=== PATIENT | female | born 1955 | race Caucasian/White ===

== ENCOUNTER 2021-03-09 06:06 | Outpatient (CLI) | payer MEDICARE ==
[~2021-03-09] VITALS: Ht 167.7 cm; Wt 105.5 kg
[2021-03-09] MEDS ORDERED: LEVO75CA5 PO (15:22)
[2021-03-09] MEDS ORDERED: TIZA4TAB4 PO (15:22)
== END 2021-03-09 17:00 | disposition home or self-care (01) ==
LOC: PREOP 06:06
PROVIDERS: ATTEND Surgery
DX: Z01.818 Encounter for other preprocedural examination (principal)

== ENCOUNTER 2021-03-16 08:18 | Day surgery (SDC) | payer MEDICARE ==
--- NOTE | 2021-03-15 14:05 | HISTORY AND PHYSICAL ---
DATE OF SERVICE: ATTENDING PHYSICIAN: HISTORY OF PRESENT ILLNESS: The patient is a 66-year-old female, who was referred over to us for gallstones. She reports that for the last 4 to 5 years she has had intermittent episodes of right sided abdominal pain, which she reports would radiate towards her back as well as episodes of bloating. She reports that she had an ultrasound in 2015, which did show gallstones and then had a repeat ultrasound in July of last year, which showed gallstones. She denied any nausea or vomiting as well as no diarrhea. She reports that she has not noticed any association between any foods in her pain. PAST MEDICAL HISTORY: Morbid obesity, hypothyroidism, degenerative joint disease of the back and knees. PAST SURGICAL HISTORY: Left total knee arthroplasty 08/2019, open appendectomy in 1974. ALLERGIES: No known drug allergies. MEDICATIONS: [place] Thyroid 180 mg, hydrocodone/acetaminophen 7.5/325 mg, meloxicam 15 mg, tizanidine 4 mg. SOCIAL HISTORY: Previous for tobacco smoke for 20 pack years, quit in 2017, negative for alcohol. FAMILY HISTORY: Father, myocardial infarction. Mother, hypertension, myocardial infarction. VITAL SIGNS: Blood pressure is 184/80. Current weight is 230 pounds at 5 feet 6 inches. REVIEW OF SYSTEMS: This is a well-nourished female in no acute distress. She is not experiencing any shortness of breath or difficulty breathing. No chest pain, palpitations or diaphoresis. No nausea or vomiting. She does report episodes of right upper quadrant abdominal pain that does radiate towards her back. No diarrhea or constipation. No red blood per rectum. No dark tarry stools. No fever or chills. No recent inadvertent weight loss. All other review of systems negative. PHYSICAL EXAMINATION: CHEST: Clear. Good breath sounds bilaterally. HEART: Regular, no murmurs. EXTREMITIES: No lower extremity edema. Negative Homans sign. HEENT: No scleral icterus. NECK: No cervical lymphadenopathy. ABDOMEN: Soft, nondistended. There is some mild discomfort with palpation in the right upper abdominal quadrant. No palpable masses. No organomegaly. SKIN: Warm, dry and pink. NEUROLOGIC: Awake, alert and oriented x3. ASSESSMENT AND PLAN: A 66-year-old female with symptomatic chronic calculous cholecystitis. At this time, we will recommend proceeding with a laparoscopic cholecystectomy. The risks and benefits of the procedure as well as the procedure and home care instructions were explained to the patient. The patient verbalized understanding of instructions and agrees to proceed as planned. Job ID: [id number] DocumentID: [id number] Dictated Date: 03/15/2021 13:33:46 Stationary Fireman Date: 03/15/2021 14:04:24 Dictated By: KEIRY GREY APRN
[2021-03-16] VITALS (12 sets, daily range): BP systolic 114–161; BP diastolic 64–93
[~2021-03-16] VITALS: Ht 167.7 cm; Wt 105.5 kg
[~2021-03-16 08:18] MED LIST: LEVO75CA5 PO; TIZA4TAB4 PO
[2021-03-16] MEDS ORDERED: FAMOTIDINE 20MG/2ML IV (PEPCID) IV ONE (08:45)
[2021-03-16] MEDS ORDERED: ONDANSETRON 4 MG/2 ML (SDV) Z0FRAN IV ONE (08:45)
[2021-03-16] MEDS ORDERED: LACTATED RINGERS 1,000 ML IV PRN (09:00)
[2021-03-16] MEDS ORDERED: ceFAZolin 2 GM IV Premixed 50 ML IV ONE (09:00)
[2021-03-16] MEDS ORDERED: ceFAZolin 2 GM IV Premixed 50 ML ONE (09:10)
--- NOTE | 2021-03-16 09:11 | Progress Note-Pre Operative ---
Pre-Operative Progress Note H&P Reviewed The H&P was reviewed, patient examined and no changes noted. Date Seen by Provider: Mar 16, 2021 Time Seen by Provider: 09:05 Date H&P Reviewed: Mar 16, 2021 Time H&P Reviewed: 09:00 Pre-Operative Diagnosis: Chronic calculous cholecystitis KEIRY GREY APRN Mar 16, 2021 09:11
[2021-03-16] MEDS ORDERED: HYDR-3817 PO (09:13)
--- NOTE | 2021-03-16 09:14 | Discharge Inst-Surgical ---
D/C Lap Instructions-KIDO Reconcile Patient Problems Problems Reviewed?: Yes New, Converted, or Re-Newed RX: RX on Chart Follow Up Appt in 2 weeks Activity as tolerated No driving for 24 hours No driving while on pain medications Incentive Spirometry use every 2 hours while awake Regular Diet Symptoms to Report: Fever over 101 degree F, Nausea/Vomiting Infection Signs and Symptoms to report: Increased redness, Foul odor of wound, Increased drainage Bathing instructions: May shower Operative Area Clean/Dry; Keep incision clean/dry If any problems/questions: Contact your physician or go to Emergency Room KEIRY GREY APRN Mar 16, 2021 09:14
[2021-03-16] MEDS ORDERED: ONDANSETRON 4 MG/2 ML (SDV) Z0FRAN IVP PRN (09:15)
[2021-03-16] MEDS ORDERED: HYDROcodone/APAP 5 MG/325 MG (LORTAB) TAB PO ONE (09:15)
[2021-03-16] MEDS ORDERED: ACETAMINOPHEN 325 MG TABLET PO PRN (09:15)
[2021-03-16] MEDS ORDERED: morphine INJ 10 MG/ML 1ML (SYR OR VIAL) IVP PRN (09:15)
[2021-03-16] MEDS ORDERED: LIDOCAINE/EPI 1%-1:100,000 (XYLOCAINE) 20ML ONE (09:27)
[2021-03-16] MEDS ORDERED: LIDOCAINE PF 2% 5 ML (XYLOCAINE) VIAL ONE (09:49)
[2021-03-16] MEDS ORDERED: ONDANSETRON 4 MG/2 ML (SDV) Z0FRAN ONE ×3 (09:49→12:06)
[2021-03-16] MEDS ORDERED: proPOfol 200 MG/20 ML (DIPRIVAN) VIAL IV ONE (09:49)
[2021-03-16] MEDS ORDERED: fentaNYL INJ 100 MCG/2 ML AMP ONE (09:49)
[2021-03-16] MEDS ORDERED: ROCURONIUM 10 MG/ML 5 ML SYRINGE IV ONE (09:49)
[2021-03-16] MEDS ORDERED: SEVOFLURANE (ULTANE) 15 ML INHAL SOLN ONE (09:49)
[2021-03-16] MEDS ORDERED: MIDAZOLAM 2 MG/2 ML (VERSED) VIAL ONE (09:50)
[2021-03-16] MEDS ORDERED: SUCCINYLCHOLINE INJ 100 MG/5 ML SYR/VIAL ONE (10:45)
[2021-03-16] MEDS ORDERED: NEOSTIGMINE 3 MG/3 ML VIAL ONE (11:33)
[2021-03-16] MEDS ORDERED: GLYCOPYRROLATE 0.2 MG/ML (ROBINUL) 2 ML VIAL ONE (11:33)
--- NOTE | 2021-03-16 11:42 | Progress Note-Post Operative ---
Post-Operative Progess Note Surgeon (s)/Impact Hammer Operator (s) Surgeon EDVIN ROWE MD Impact Hammer Operator: sharon vitale BICYCLE REPAIRER Pre-Operative Diagnosis Chronic calculous cholecystitis Post-Operative Diagnosis same Procedure & Operative Findings Date of Procedure 03/16/21 Procedure Performed/Findings laparoscopic cholecystectomy Anesthesia Type GET Estimated Blood Loss Estimated blood loss (mL): minimal Specimens/Packing Specimens Removed gallbladder EDVIN ROWE MD Mar 16, 2021 11:42
--- NOTE | 2021-03-16 11:56 | Anesthesia-General Post-Op ---
General Patient Condition Mental Status/LOC: Same as Preop Cardiovascular: Satisfactory Nausea/Vomiting: Absent Respiratory: Satisfactory Pain: Controlled Complications: Absent Post Op Complications Complications None Follow Up Care/Instructions Patient Instructions None needed. Anesthesia/Patient Condition Patient Condition Patient is doing well, no complaints, stable vital signs, no apparent adverse anesthesia problems. No complications reported per nursing. PEDRO LUIS MCKEE CRNA Mar 16, 2021 11:56
[2021-03-16] MEDS ORDERED: morphine INJ 10 MG/ML 1ML (SYR OR VIAL) ONE (11:58)
[2021-03-16] MEDS: ONDANSETRON 4 MG/2 ML (SDV) Z0FRAN IVP PRN ×2 (11:59→12:08)
[2021-03-16] MEDS ORDERED: fentaNYL INJ 100 MCG/2 ML AMP IVP ONE (12:00)
[2021-03-16] MEDS ORDERED: MEPERIDINE (DEMEROL) INJ 50 MG/ML IVP ONE (12:00)
[2021-03-16] MEDS ORDERED: morphine INJ 10 MG/ML 1ML (SYR OR VIAL) IVP ONE (12:00)
[2021-03-16] MEDS ORDERED: PROMETHAZINE INJ 25 MG/ML (PHENERGAN) AMP ONE (12:35)
--- NOTE | 2021-03-16 22:59 | OPERATIVE REPORT ---
DATE OF SERVICE: 03/16/2021 ATTENDING PRIMARY CARE PHYSICIAN: Dr. Eduar Laboy. PREOPERATIVE DIAGNOSIS: Symptomatic chronic calculous cholecystitis. POSTOPERATIVE DIAGNOSIS: Symptomatic chronic calculous cholecystitis. PROCEDURE: Laparoscopic cholecystectomy. SURGEON: Edvin Rowe MD. SPIRAL WINDING MACHINE HELPER: Eber Philip APRN. ANESTHESIA: General endotracheal. ESTIMATED BLOOD LOSS: Minimal. FINDINGS: Multiple gallstones. DISPOSITION: The patient tolerated the procedure well. INDICATIONS: The patient is a 66-year-old female referred over to us for symptomatic gallstones. She states that she has had some intermittent pain for the past 5 years in the right upper abdominal quadrant with radiation towards the back as well as abdominal bloating after eating meals. She did have an ultrasound performed in 2016, which did show gallstones at that time. She states that over time that this has become more symptomatic. DESCRIPTION OF PROCEDURE: The patient was brought to the operating room, laid supine on the table. After adequate IV pain and sedative medications and general endotracheal intubation, the abdomen was prepped and draped in standard surgical fashion. A 0.5% Marcaine with epinephrine was used to anesthetize overlying skin in the left upper abdominal quadrant and a transverse skin incision made using a 15 blade. An 0 silk suture was applied to the medial aspect incision for retraction and a Veress needle inserted with a low opening pressure of 0 mmHg. The abdomen was then insufflated to 15 mmHg pressure. The Veress needle removed and a 5 mm XL trocar placed followed by a 5 mm 45-degree angle laparoscope visualizing the peritoneal cavity. A 4-quadrant abdominal exploration was performed. There were some omental adhesions towards abdominal wall, mild hepatomegaly, distended gallbladder, no gallbladder wall thickening. Under direct visualization, we then proceeded to place a supraumbilical 10 mm port after the skin and peritoneal lining were anesthetized using 0.5% Marcaine with epinephrine and a transverse skin incision made using a 15 blade. In a similar manner, a right upper abdominal quadrant 5 mm port was placed. The patient was then placed in a reverse Trendelenburg position as well as plane right side up, left side down. The fundus of the gallbladder was then retracted anteriorly and superiorly. The fundus of the hepatoduodenal ligament was then opened using cautery as well as blunt dissection using a hook instrument as well as a [place] dissector. The entire critical view of safety was identified including the triangle of Calot as well as the cystic duct and artery as only two structures going into the gallbladder as well as the cystic plate behind the proximal gallbladder. A timeout was then taken and the cystic duct and artery were then clipped proximally and distally and cut with EndoShears. The gallbladder was then dissected off the liver bed using cautery on hook instrument with visualization of good hemostasis as well as no leaking ducts of Luschka. The gallbladder was removed through the 10 mm port site using an EndoCatch bag. The 10 mm port site fascia and peritoneum were then closed under direct visualization using a Enzo-Han device and 0 Vicryl suture. The abdomen was desufflated and remaining ports removed. All skin incisions were closed using 4-0 Monocryl running subcuticular sutures. Wounds were then cleaned and covered with Dermabond. The patient tolerated the procedure well. We will start IV and oral pain medications and clear liquid diet. Once she is tolerating clears, has good pain control with oral pain medications and is ambulating well we will discharge her home where she will be instructed to do no heavy lifting or exertion for the next 2 weeks. Job ID: [id number] DocumentID: [id number] Dictated Date: 03/16/2021 11:48:00 Application Systems Administrator Date: 03/16/2021 16:42:32 Dictated By: EDVIN ROWE MD [facility]Te[facility]
== END 2021-03-16 14:55 | disposition home or self-care (01) ==
LOC: SDC 08:18
PROVIDERS: ATTEND Surgery
DX: K80.10 Calculus of gallbladder with chronic cholecystitis without obstruction (principal); E03.9 Hypothyroidism, unspecified; E66.01 Morbid (severe) obesity due to excess calories; M47.9 Spondylosis, unspecified; M17.0 Bilateral primary osteoarthritis of knee; Z79.890 Hormone replacement therapy; Z79.899 Other long term (current) drug therapy; Z79.891 Long term (current) use of opiate analgesic; Z87.891 Personal history of nicotine dependence; Z11.2 Encounter for screening for other bacterial diseases; Z68.37 Body mass index [BMI] 37.0-37.9, adult
CPT/HCPCS: 87081

== ENCOUNTER 2021-04-13 05:40 | Outpatient (CLI) | payer MEDICARE ==
[~2021-04-13] VITALS: Ht 167.7 cm; Wt 104.5 kg
[~2021-04-13 05:40] MED LIST changes: +HYDR-3817 PO; +TIZA-186 PO; -TIZA4TAB4 PO
== END 2021-04-13 14:27 | disposition home or self-care (01) ==
LOC: PREOP 05:40
PROVIDERS: ATTEND Surgery
DX: Z01.818 Encounter for other preprocedural examination (principal)

== ENCOUNTER 2021-04-20 10:30 | Inpatient (IN) | payer MEDICARE ==
--- NOTE | 2021-04-19 11:05 | HISTORY AND PHYSICAL ---
DATE OF SERVICE: THIS IS FOR DATE OF SERVICE: 04/20/2021. ATTENDING PRIMARY CARE PHYSICIAN: Dr. Tawanda Moore. HISTORY: The patient is a 66-year-old female, who is known to us. She was initially seen for gallstones and did undergo a laparoscopic cholecystectomy on 03/16/2021. She also reports that she has a history of obesity and is interested in the laparoscopic gastric sleeve resection and does meet the medical criteria for bariatric surgery. She reports that she began to gain the majority of her adult weight 15 years ago after she went through menopause. She reports that since that time she has tried diets such as keto diet, low carbohydrates abstaining from meat and Arbonne shakes with little success. She reports she has also tried exercises such as aerobic exercise as well as Kelly classes in the past and again reported little success. She reports she has also tried the medication phentermine and reports that she did lose approximately 5 to 10 pounds; however, after stopping the medication, she did regain his weight back. Her medical comorbidities related to obesity include degenerative joint disease of the lower back and knees. PAST MEDICAL HISTORY: Morbid obesity, hypothyroidism, degenerative joint disease of the back and knees. MEDICATIONS: Thyroid 180 mg daily, hydrocodone 7.5/325 mg p.r.n., meloxicam 15 mg daily, tizanidine 4 mg p.r.n. ALLERGIES: No known drug allergies. PAST SURGICAL HISTORY: Left total knee arthroplasty 08/2019, open appendectomy in 1974, laparoscopic cholecystectomy 03/2021. SOCIAL HISTORY: Previous for tobacco smoke for 20 pack years, quit in 2017, negative for alcohol. FAMILY HISTORY: Father, myocardial infarction. Mother, hypertension, myocardial infarction. VITAL SIGNS: Blood pressure is 184/80. Current weight is 230.8 pounds, height 5 feet 6 inches with a body mass index of 37.3. REVIEW OF SYSTEMS: Well-nourished female, in no acute distress. She is not experiencing any shortness of breath or difficulty breathing. No chest pain, palpitations or diaphoresis. No nausea, vomiting or abdominal pain. No diarrhea or constipation. No red blood per rectum. No dark tarry stools. No fever or chills. No recent inadvertent weight loss. All other review of systems negative. PHYSICAL EXAMINATION: CHEST: Clear. Good breath sounds bilaterally. HEART: Regular, no murmurs. EXTREMITIES: No lower extremity edema. Negative Homans sign. HEENT: No scleral icterus. NECK: No cervical lymphadenopathy. ABDOMEN: Soft, nontender, nondistended. SKIN: Warm, dry and pink. NEUROLOGIC: Awake, alert and oriented x3. ASSESSMENT AND PLAN: A 66-year-old female with morbid obesity and medical comorbidities related to obesity including degenerative joint disease of the back and knees. She is interested in the laparoscopic gastric sleeve resection and does meet the medical criteria for bariatric surgery. She has completed the necessary tests and evaluations including overnight oximetry study, upper GI contrast study, her nutrition and psychology consult as well as received clearance from her primary care physician. The risks and benefits of the procedure as well as the procedure and home care instructions were explained to the patient. It was also discussed with the patient in depth about preoperative as well as postoperative diet as well as exercise. She verbalizes understanding of instructions and agrees to proceed as planned. At this time, we will proceed with scheduling her for the laparoscopic gastric sleeve resection. CC: Dr. Tawanda Moore -- requested, unable to deliver. Job ID: [id number] DocumentID: [id number] Dictated Date: 04/19/2021 09:44:57 [facility] Date: 04/19/2021 11:05:01 Dictated By: KEIRY GREY APRN
[2021-04-20] VITALS (10 sets, daily range): BP systolic 118–172; BP diastolic 70–84
[~2021-04-20] VITALS: Ht 167 cm; Wt 104.5 kg
--- NOTE | 2021-04-20 11:11 | Progress Note-Pre Operative ---
Pre-Operative Progress Note H&P Reviewed The H&P was reviewed, patient examined and no changes noted. Date Seen by Provider: Apr 20, 2021 Time Seen by Provider: 11:00 Date H&P Reviewed: Apr 20, 2021 Time H&P Reviewed: 11:00 Pre-Operative Diagnosis: morbid obesity, SAJAND EDVIN ROWE MD Apr 20, 2021 11:11
[2021-04-20] MEDS ORDERED: NALOXONE 0.4 MG/ML 1 ML (NARCAN) VIAL IV PRN (11:15)
[2021-04-20] MEDS ORDERED: 1/2 NS W/KCL 20 MEQ/L 1,000 ML IV SCH (11:15)
[2021-04-20] MEDS ORDERED: NS IV 1000 ML 1,000 ML IV SCH (11:15)
[2021-04-20] MEDS ORDERED: diphenhydrAMINE 50 MG/ML INJ (BENADRYL) IV PRN (11:15)
[2021-04-20] MEDS ORDERED: fentaNYL INJ 1,000 MCG in NS (IVPB) 80 ML IV SCH (11:15)
[2021-04-20] MEDS ORDERED: diphenhydrAMINE 50 MG/ML INJ (BENADRYL) IVP PRN (11:15)
[2021-04-20] MEDS ORDERED: ONDANSETRON 4 MG/2 ML (SDV) Z0FRAN IV PRN (11:15)
[2021-04-20] MEDS ORDERED: METOCLOPRAMIDE INJ 10 MG/2 ML (REGLAN) IV PRN (11:15)
--- NOTE | 2021-04-20 11:16 | Discharge Inst-Surgical ---
D/C Lap Instructions-JAE Follow Up Appt in 2 weeks Activity as tolerated No driving for 24 hours No driving while on pain medications Incentive Spirometry use every 2 hours while awake Phase 1 clear liquid diet for next 2 weeks. Symptoms to Report: Fever over 101 degree F, Nausea/Vomiting Infection Signs and Symptoms to report: Increased redness, Foul odor of wound, Increased drainage Bathing instructions: May shower Operative Area Clean/Dry; Keep incision clean/dry If any problems/questions: Contact your physician or go to Emergency Room EDVIN ROWE MD Apr 20, 2021 11:16
[2021-04-20] MEDS: LACTATED RINGERS 1,000 ML IV PRN ×3 (11:17→16:18)
[2021-04-20] MEDS ORDERED: ceFAZolin 2 GM IV Premixed 50 ML IV ONE (11:30)
[2021-04-20] MEDS ORDERED: METOCLOPRAMIDE INJ 10 MG/2 ML (REGLAN) IVP SCH (12:00)
[2021-04-20] MEDS ORDERED: ONDANSETRON 4 MG/2 ML (SDV) Z0FRAN IVP SCH (12:00)
[2021-04-20] MEDS ORDERED: LIDOCAINE/EPI 1%-1:100,000 (XYLOCAINE) 20ML ONE ×2 (12:26→14:43)
[2021-04-20] MEDS ORDERED: ROCURONIUM 50 MG/5 ML (ZEMURON) VIAL IV ONE (12:44)
[2021-04-20] MEDS ORDERED: MIDAZOLAM 2 MG/2 ML (VERSED) VIAL ONE (12:44)
[2021-04-20] MEDS ORDERED: ONDANSETRON 4 MG/2 ML (SDV) Z0FRAN ONE (12:44)
[2021-04-20] MEDS ORDERED: LIDOCAINE PF 2% 5 ML (XYLOCAINE) VIAL ONE (12:44)
[2021-04-20] MEDS ORDERED: proPOfol 200 MG/20 ML (DIPRIVAN) VIAL IV ONE (12:44)
[2021-04-20] MEDS ORDERED: fentaNYL INJ 100 MCG/2 ML AMP ONE ×2 (12:44→15:18)
[2021-04-20] MEDS ORDERED: FAMOTIDINE 20MG/2ML IV (PEPCID) ONE (12:46)
[2021-04-20] MEDS ORDERED: SCOPOLAMINE 1.5 MG (TRANSDERM-SCOP) PATCH ONE (12:46)
[2021-04-20] MEDS ORDERED: FAMOTIDINE 20MG/2ML IV (PEPCID) IVP ONE (13:15)
[2021-04-20] MEDS ORDERED: ONDANSETRON 4 MG/2 ML (SDV) Z0FRAN IVP ONE (13:15)
[2021-04-20] MEDS ORDERED: SCOPOLAMINE 1.5 MG (TRANSDERM-SCOP) PATCH TD ONE (13:15)
[2021-04-20] MEDS ORDERED: GLYCOPYRROLATE 0.2 MG/ML (ROBINUL) 2 ML VIAL ONE (15:22)
[2021-04-20] MEDS ORDERED: NEOSTIGMINE 3 MG/3 ML VIAL ONE (15:22)
--- NOTE | 2021-04-20 15:32 | Progress Note-Post Operative ---
Post-Operative Progess Note Surgeon (s)/Relay Worker (s) Surgeon EDVIN ROWE MD Relay Worker: none Pre-Operative Diagnosis morbid obesity, DJD Post-Operative Diagnosis same Procedure & Operative Findings Date of Procedure 04/20/21 Procedure Performed/Findings laparoscopic gastric sleeve resection Anesthesia Type get Estimated Blood Loss Estimated blood loss (mL): minimal Specimens/Packing Specimens Removed stomach EDVIN ROWE MD Apr 20, 2021 15:32
[2021-04-20] MEDS ORDERED: SEVOFLURANE (ULTANE) 15 ML INHAL SOLN ONE (15:48)
--- NOTE | 2021-04-20 15:57 | Anesthesia-General Post-Op ---
General Patient Condition Mental Status/LOC: Same as Preop Cardiovascular: Satisfactory Nausea/Vomiting: Absent Respiratory: Satisfactory Pain: Controlled Complications: Absent Post Op Complications Complications None Follow Up Care/Instructions Patient Instructions None needed. Anesthesia/Patient Condition Patient Condition Patient is doing well, no complaints, stable vital signs, no apparent adverse anesthesia problems. No complications reported per nursing. BETTE DILL CRNA Apr 20, 2021 15:57
[2021-04-20] MEDS ORDERED: morphine INJ 10 MG/ML 1ML (SYR OR VIAL) IVP ONE (16:00)
[2021-04-20] MEDS ORDERED: LACTATED RINGERS 1,000 ML IV ONE (16:13)
[2021-04-20] MEDS ORDERED: morphine INJ 10 MG/ML 1ML (SYR OR VIAL) ONE (16:14)
[2021-04-20] MEDS: ONDANSETRON 4 MG/2 ML (SDV) Z0FRAN IVP PRN ×2 (16:15→16:47)
[2021-04-20] MEDS: 1/2 NS W/KCL 20 MEQ/L 1,000 ML IV SCH (17:21)
[2021-04-20] MEDS: METOCLOPRAMIDE INJ 10 MG/2 ML (REGLAN) IVP SCH (17:22)
[2021-04-20] MEDS: ONDANSETRON 4 MG/2 ML (SDV) Z0FRAN IVP SCH ×2 (17:23→19:48)
[2021-04-20] MEDS: metroNIDAZOLE 500MG/100ML IVPB 100 ML IV SCH (17:24)
[2021-04-20] MEDS: ENOXAPARIN 30 MG/0.3 ML (LOVENOX) SYR SC SCH (19:48)
[2021-04-20] MEDS: ceFAZolin 2 GM IV Premixed 50 ML IV SCH (21:35)
[2021-04-20] MEDS ORDERED: PROMETHAZINE INJ 25 MG/ML (PHENERGAN) AMP IVP PRN (22:00)
[2021-04-20] MEDS ORDERED: PROMETHAZINE INJ 25 MG/ML (PHENERGAN) AMP ONE (22:03)
[2021-04-20] MEDS ORDERED: ONDANSETRON 4 MG/2 ML (SDV) Z0FRAN IVP PRN (22:15)
[2021-04-20] MEDS ORDERED: METOCLOPRAMIDE INJ 10 MG/2 ML (REGLAN) IVP PRN (22:15)
[2021-04-20] MEDS: RT-ALBUTEROL SULF 2.5 MG/3 ML PRE-MIX VIAL INH SCH (22:36)
--- NOTE | 2021-04-21 00:04 | OPERATIVE REPORT ---
DATE OF SERVICE: 04/20/2021 ATTENDING PRIMARY CARE PHYSICIAN: Dr. Eduar Laboy. PREOPERATIVE DIAGNOSES: Morbid obesity, degenerative joint disease. POSTOPERATIVE DIAGNOSES: Morbid obesity, degenerative joint disease. PROCEDURE: Laparoscopic gastric sleeve resection. SURGEON: Edvin Rowe MD. ARCHITECT IN TRAINING: Eber Philip APRN. ANESTHESIA: General endotracheal. ESTIMATED BLOOD LOSS: Minimal. FINDINGS: Surgically absent gallbladder. No hepatomegaly, no hiatal hernia. DISPOSITION: The patient tolerated the procedure well. INDICATIONS: The patient is a 66-year-old female known to us. She was initially seen for gallstones and underwent a laparoscopic cholecystectomy on 03/16/2021. She also does have a history of morbid obesity and does meet the medical criteria for bariatric surgery and is in our surgical weight loss program for the laparoscopic gastric sleeve resection. She began to gain the majority of her adult weight 15 years ago when she went through menopause. She states that she then developed hypothyroidism and did gain significant more amount of weight. She has tried a number of diet and exercise attempts with no success. She has tried diet programs including ketogenic, low carbohydrate, Arbonne shakes with little success. She has also tried exercise regimens including aerobic exercise classes, Kelly classes, resistance weight training again with no success. She has also tried medications with phentermine and was able to lose approximately 10 pounds; however, stopping the medication, she would regain the weight back. Her medical comorbidities related to her obesity include degenerative joint disease of the lower back and knees. DESCRIPTION OF PROCEDURE: The patient was brought to the operating room, laid supine on the table. After adequate IV pain and sedative medications and general endotracheal intubation, the abdomen was prepped and draped in standard surgical fashion. A 0.5% Marcaine with epinephrine was then used to anesthetize the overlying skin in the left upper abdominal quadrant and transverse skin incision made using 15 blade. An 0 silk suture was applied to the medial aspect incision for retraction and Veress needle inserted with a low opening pressure of 0 mmHg. The abdomen was then insufflated to 15 mmHg pressure. The Veress needle removed, and a 5 mm XL trocar placed followed by a 5 mm 45-degree angle laparoscope visualizing the peritoneal cavity. A 4-quadrant abdominal exploration was performed. There was a surgically absent gallbladder. There was no hepatomegaly present. No hiatal hernia identified retrospectively. Under direct visualization, we then proceeded to place a midabdominal left to midline 10 mm port after the skin and peritoneal lining were anesthetized using 0.5% Marcaine with epinephrine and a transverse skin incision made using 15-blade. In a similar manner, a midabdominal right of midline 15 mm port was placed followed by a right upper abdominal quadrant 5 mm port. The epigastric region was then anesthetized, and a transverse skin incision made using 11-blade. A tract was then created through the abdominal wall layers using a trocar to a 5 mm port. Through this opening, a medium sized Nathansen liver retractor was placed, and the left lobe of the liver retracted anteriorly and superiorly. The patient was then placed in steep reverse Trendelenburg position. We then measured 6 cm along the greater curvature from the pylorus and marked this with a marking pen. The gastrocolic ligament next to the stomach was then opened using a Sonicision entering the lesser sac. We then proceeded with inferior dissection until we were approximately 2 cm below our marking using the Sonicision. We then proceeded cephalad taking down the short gastric vessels as well as the angle of His connective tissue fibers and continued our dissection until the left esdras of the diaphragm was identified with visualization of good hemostasis. A 36-La[place] ViSiGi was then placed under direct visualization into the pylorus. This was then placed to suction. We then proceeded with our gastric sleeve resection using the ViSiGi as a staple line guide. We first proceeded with a 45 mm polyglycolic acid black load followed by two 60 mm black loads followed by a 60 mm purple load and a 45 mm purple loads completing our gastric sleeve resection leaving approximately 2 cm next to the gastroesophageal junction. The staple line corners were then clipped with 5 mm clips. A leak test was performed to 35 mmHg air with no leak identified. The fibrin glue was then placed onto the staple line and the omentum placed onto the staple line. The stomach was removed through the 15 mm port site. The fascia and peritoneum to the 10 and 15 mm port sites were then closed under direct visualization using a Enzo-Han device and 0 Vicryl suture. The abdomen was then desufflated and remaining ports removed. All skin incisions were closed using 4-0 Monocryl running subcuticular sutures. Wounds were then cleaned and covered with Dermabond. The patient tolerated the procedure well. We will start pain control with a REFRIGERATION SYSTEM INSTALLER pump. We will proceed with DVT prophylaxis with early ambulation, calf SCDs as well as Lovenox injections. Once she is tolerating at least 60 mL of clears every 30 minutes, has adequate pain control with oral pain medications, ambulating well, we will discharge her home where she will be instructed to follow a phase 1 clear liquid diet for the next two weeks. Job ID: [id number] DocumentID: [id number] Dictated Date: 04/20/2021 15:41:43 Lime Boiler Date: 04/21/2021 00:03:57 Dictated By: EDVIN ROWE MD
[2021-04-21] MEDS: METOCLOPRAMIDE INJ 10 MG/2 ML (REGLAN) IVP SCH ×3 (00:17→11:45)
[2021-04-21] MEDS: ONDANSETRON 4 MG/2 ML (SDV) Z0FRAN IVP SCH ×3 (00:17→11:45)
[2021-04-21] MEDS: metroNIDAZOLE 500MG/100ML IVPB 100 ML IV SCH ×2 (00:18→09:35)
[2021-04-21] MEDS: 1/2 NS W/KCL 20 MEQ/L 1,000 ML IV SCH ×2 (00:18→06:09)
[2021-04-21 00:21] VITALS: BP 143/67
[2021-04-21 03:26] VITALS: BP 155/74
[2021-04-21] MEDS: ceFAZolin 2 GM IV Premixed 50 ML IV SCH (06:04)
[2021-04-21 06:22] LABS: HEMOGLOBIN 13.9 g/dL (11.5-16.0)
[2021-04-21 06:28] LABS: POTASSIUM 3.9 MMOL/L (3.6-5.0)
[2021-04-21 06:29] LABS: CALCIUM 8.6 MG/DL (8.5-10.1)
[2021-04-21 06:34] LABS: CREATININE SERUM 0.7 MG/DL (0.60-1.30)
[2021-04-21 07:37] VITALS: BP 165/74
[2021-04-21] MEDS: RT-ALBUTEROL SULF 2.5 MG/3 ML PRE-MIX VIAL INH SCH (07:54)
[2021-04-21] MEDS ORDERED: PANTOPRAZOLE 40 MG (PROTONIX) VIAL IV SCH (09:00)
[2021-04-21] MEDS ORDERED: SENNA W/DOCUSATE (SENOKOT S) TABLET PO SCH (09:00)
[2021-04-21] MEDS: ENOXAPARIN 30 MG/0.3 ML (LOVENOX) SYR SC SCH (09:34)
--- NOTE | 2021-04-21 10:56 | Progress Note ---
Subjective Date Seen by a Provider: Apr 21, 2021 Time Seen by a Provider: 10:50 Subjective/Events-last exam doing ok. still has some nausea but tolerating phase 1 clear liquids, pain mostly controlled and ambulating. Objective Exam Vital Signs Date Time Temp Pulse Resp B/P (MAP) Pulse Ox O2 Delivery O2 Flow Rate FiO2 04/21/21 08:00 Room Air 0.00 04/21/21 08:00 Room Air 04/21/21 07:54 93 Room Air 0.00 04/21/21 07:37 36.4 68 18 165/74 (104) 94 Room Air 04/21/21 03:26 37.3 81 20 155/74 (101) 91 Room Air 04/21/21 00:21 36.3 73 18 143/67 (92) 93 Room Air 04/20/21 22:36 94 Room Air 04/20/21 19:50 Room Air 04/20/21 19:40 36.0 75 18 118/71 (87) 96 Room Air 04/20/21 19:37 91 Room Air 04/20/21 18:40 36.2 76 18 124/73 (90) 92 Room Air 04/20/21 17:40 36.0 75 18 147/79 (101) 95 Room Air 04/20/21 17:22 94 Room Air 04/20/21 16:40 35.6 73 18 138/79 (98) 95 Room Air 04/20/21 16:40 Room Air 04/20/21 16:35 Room Air 04/20/21 16:30 36.2 18 143/70 (94) 96 Room Air 04/20/21 16:22 OxyMask 2 04/20/21 16:20 15 148/74 (98) 99 OxyMask 2 04/20/21 16:10 14 159/80 (106) 99 OxyMask 3 04/20/21 16:00 18 161/84 (109) 97 OxyMask 6 04/20/21 15:49 36.6 20 172/83 (112) 98 OxyMask 8 04/20/21 15:49 OxyMask 8 04/20/21 11:36 96 Room Air 04/20/21 11:26 36.8 63 18 150/79 (102) 96 Room Air I & O 04/21/21 06:59 Intake Total 2200 ml Output Total 2775 ml Balance -575 ml Capillary Refill : General Appearance: No Apparent Distress HEENT: PERRL/EOMI Neck: Full Range of Motion Respiratory: Chest Non Tender, Lungs Clear Cardiovascular: Regular Rate, Rhythm Gastrointestinal: normal bowel sounds, soft, tenderness Extremity: Normal Capillary Refill Neurologic/Psychiatric: Alert, Oriented x3 Skin: Normal Color Lymphatic: No Adenopathy Results Lab Laboratory Tests 04/21/21 06:10: Hemoglobin 13.9, Hematocrit 41, Sodium Level 132L, Potassium Level 3.9, Chloride Level 104, Carbon Dioxide Level 15L, Anion Gap 13, Blood Urea Nitrogen 5L, Creatinine 0.70, Estimat Glomerular Filtration Rate 83, BUN/Creatinine Ratio 7, Glucose Level 123H, Calcium Level 8.6 Microbiology 04/20/21 MRSA Screen - Final, Complete MRSA not isolated Assessment/Plan Assessment/Plan Assess & Plan/Chief Complaint s/p laparoscopic gastric sleeve resection. ambulate. increase to clear liquids at 60ml/30min. EDVIN ROWE MD Apr 21, 2021 10:56
[2021-04-21] MEDS ORDERED: METOCLOPRAMIDE INJ 10 MG/2 ML (REGLAN) IVP PRN (11:15)
[2021-04-21] MEDS ORDERED: ONDANSETRON 4 MG/2 ML (SDV) Z0FRAN IVP PRN (11:15)
[2021-04-21 12:00] VITALS: BP 154/70
[2021-04-23] MEDS ORDERED: SCOPOLAMINE PATCH REMOVAL TP SCH (13:15)
== END 2021-04-21 14:40 | disposition home or self-care (01) | DRG 621 ==
LOC: 4TH 10:30 → SURG 10:32 → EDSTATUS 11:15 → 4TH 16:45
PROVIDERS: ADMIT Surgery; ATTEND Surgery
PROC: 0DB64Z3 Excision of Stomach, Percutaneous Endoscopic Approach, Vertical (ICD-10-PCS; principal; 2021-04-20 14:01)
DX: E66.01 Morbid (severe) obesity due to excess calories (principal); Z87.891 Personal history of nicotine dependence; Z96.652 Presence of left artificial knee joint; E03.9 Hypothyroidism, unspecified; Z68.37 Body mass index [BMI] 37.0-37.9, adult; M17.0 Bilateral primary osteoarthritis of knee
CPT/HCPCS: 36415; 80048; 85014; 85018; 87081; 94640; 94664; 94760